=== PATIENT | female | born 1980 | race African-American/Black ===

== ENCOUNTER 2022-06-19 07:03 | Outpatient (CLI) | payer OTHER ==
[2022-06-19 07:31] LABS: BASOPHILS # (AUTO) 0.1 10^3/uL (0.0-0.1); BASOPHILS % (AUTO) 0.9 %; EOSINOPHILS # (AUTO) 0.2 10^3/uL (0.0-0.7); EOSINOPHILS % (AUTO) 3.3 %; HCT - HEMATOCRIT 29.6 % (37.0-47.0); HGB - HEMOGLOBIN 8.1 g/dL (12.0-16.0); LYMPHOCYTES # (AUTO) 1.9 10^3/uL (1.5-3.5); LYMPHOCYTES % (AUTO) 35.4 %; MEAN CORPUSCULAR HGB CONC 27.4 g/dL (32.0-36.0); MEAN CORPUSCULAR VOLUME 72.9 fL (81.0-99.0); MONOCYTES # (AUTO) 0.5 10^3/uL (0.0-1.0); MONOCYTES % (AUTO) 9.2 %; NEUTROPHILS # (AUTO) 2.7 10^3/uL (1.5-6.6); NEUTROPHILS % (AUTO) 50.5 %; PLT - PLATELET COUNT 325 10^3/uL (130-450); RED BLOOD COUNT 4.06 10^6/uL (4.20-5.40); RED CELL DISTRIBUTION WIDTH 19.2 % (12.0-15.0); WHITE BLOOD COUNT 5.4 x10^3/uL (4.8-10.8)
[2022-06-19 07:57] LABS: % IRON SATURATION 4 % (20-50); ALBUMIN 4.5 g/dL (3.2-5.5); ALBUMIN/GLOBULIN RATIO 1.3 (1.0-2.2); ALKALINE PHOSPHATASE 51 IU/L (42-121); ALT ALANINE AMINOTRANSFERASE 18 IU/L (10-60); AST ASPARTATE AMINOTRANSFERASE 21 IU/L (10-42); BILIRUBIN,TOTAL 0.2 mg/dL (0.2-1.0); BUN - BLOOD UREA NITROGEN 10 mg/dL (6-20); CALCIUM 9.6 mg/dL (8.5-10.3); CARBON DIOXIDE - CO2 26 mmol/L (21-32); CHLORIDE 104 mmol/L (101-111); CHOL/HDL RATIO 3.1 (<4.4); CHOLESTEROL 151 mg/dL; GFR - MDRD 74 (>89); GLUCOSE 94 mg/dL (70-100); HDL CHOLESTEROL 48 mg/dL; IRON 19 ug/dL (28-170); LDL CHOLESTEROL,CALCULATED 84 mg/dL; LDL/HDL RATIO 1.8 (<4.4); POTASSIUM 3.8 mmol/L (3.5-5.0); SODIUM 139 mmol/L (135-145); TOTAL IRON BINDING CAPACITY 539 ug/dL (250-450); TOTAL PROTEIN 8.1 g/dL (6.7-8.2); TRANSFERRIN 385 mg/dL (192-382); TRIGLYCERIDES 94 mg/dL; VLDL CHOLESTEROL 19 mg/dL
== END 2022-06-19 07:04 | disposition home or self-care (01) ==
LOC: LAB 07:03
PROVIDERS: ATTEND Nurse Practitioner Adult Health
DX: D64.9 Anemia, unspecified (principal); E66.9 Obesity, unspecified; I95.9 Hypotension, unspecified; R53.83 Other fatigue; E55.9 Vitamin D deficiency, unspecified; Z13.9 Encounter for screening, unspecified
CPT/HCPCS: 36415; 80053; 80061; 82306; 82533; 83540; 83721; 84443; 84466; 85025; 87086

== ENCOUNTER 2022-06-26 13:55 | Outpatient (CLI) | payer OTHER ==
--- NOTE | 2022-06-27 12:53 | Mammography Report ---
BILATERAL DIGITAL SCREENING MAMMOGRAM 3D/2D: 06/26/2022 CLINICAL: Baseline exam. Routine screening. No prior exams were available for comparison. Both breasts are heterogeneously dense, which may obscure small masses (category c / 51-75% glandula r tissue). No significant masses, calcifications, or other findings are seen in either breast. IMPRESSION: NEGATIVE There is no mammographic evidence of malignancy. A 1 year screening mammogram is recommended. Based on the Tyrer Cuzick model (a risk assessment model) the patients lifetime risk is 12.7% and he r 10 year risk is 1.6%. According to the ACR, ACS, and NCCN guidelines, an annual breast MRI exam terry ng with mammogram is recommended if the patients lifetime risk is 20% or greater. This exam was interpreted at Station ID: [id number]. NOTE: For mammograms, a report in lay terms will be sent to the patient. Approximately 15% of breast malignancies will not be visualized mammographically. In the management of a palpable breast mass, a negative mammogram must not discourage biopsy of a clinically suspicious lesion. Electronically Signed By: Brandi blevins/brad:06/26/2022 16:07:52 ACR BI-RADS Category 1: Negative 3341F PARENCHYMAL PATTERN: (D) - The breast(s) demonstrate(s) heterogeneously dense fibroglandular shonda elmore. BI-RADS CATEGORY: (1) - 1 RECOMMENDATION: (ANNUAL) - Recommend routine annual screening mammography. [id number] 1 year screening LATERALITY: (B)
== END 2022-06-26 13:56 | disposition home or self-care (01) ==
LOC: DI 13:55
PROVIDERS: ATTEND Nurse Practitioner Adult Health
DX: Z12.31 Encounter for screening mammogram for malignant neoplasm of breast (principal)

== ENCOUNTER 2022-07-16 13:45 | Outpatient (CLI) | payer OTHER ==
--- NOTE | 2022-07-16 18:41 | Ultrasound Report ---
PROCEDURE: Pelvic w/Transvaginal INDICATIONS: ABN UTERINE BLEEDING TECHNIQUE: Real-time scanning was performed of the pelvic organs, with image documentation. Additional endovagi nal scanning was necessary due to incomplete visualization of the adnexal and endometrial structures by transabdominal scanning. COMPARISON: None. FINDINGS: Uterus: Uterus is anteverted and normal in size at 11.3 x 13.0 x 11.9 cm. The myometrium is homogen eous. The endometrium measures 6.8 mm in combined thickness. At least 3 separate myometrial fibroid s present. There is a anterior midline subserosal fibroid measuring 6.2 x 6.4 x 4.6, a right-sided an terior intramural fibroid measuring 3.3 x 3.9 x 3.0 cm, and a right posterior intramural fibroid cami uring 7.4 x 6.3 x 6.1 cm. Intrauterine device appears low in the lower uterine segment or cervix Ovaries: The right ovary measures 4.0 x 2.4 x 2.6 cm, with a calculated ovarian volume of 13.2 cc. L eft ovary is not visualized. Other: No pathologic free abdominal or pelvic fluid. IMPRESSION: Low positioning of intrauterine device in the lower uterine segment or endocervical canal. Several intrauterine fibroids measuring up to 7.4 cm Reviewed by: Jose Dobbs MD on 07/16/2022 5:40 PM [facility] Approved by: Jose Dobbs MD on 07/16/2022 5:40 PM [facility] Station ID: [id number]
== END 2022-07-16 13:46 | disposition home or self-care (01) ==
LOC: DI 13:45
PROVIDERS: ATTEND Nurse Practitioner
DX: D25.1 Intramural leiomyoma of uterus (principal); D25.2 Subserosal leiomyoma of uterus; T83.32XA Displacement of intrauterine contraceptive device, initial encounter

== ENCOUNTER 2022-08-29 14:36 | Outpatient (CLI) | payer OTHER ==
[2022-08-29 14:51] LABS: HCT - HEMATOCRIT 33.4 % (37.0-47.0); HGB - HEMOGLOBIN 10.4 g/dL (12.0-16.0); MEAN CORPUSCULAR HEMOGLOBIN 26.1 pg (27.0-31.0); MEAN CORPUSCULAR HGB CONC 31.1 g/dL (32.0-36.0); MEAN CORPUSCULAR VOLUME 83.9 fL (81.0-99.0); MEAN PLATELET VOLUME 9.8 fL (7.9-10.8); RED BLOOD COUNT 3.98 10^6/uL (4.20-5.40); RED CELL DISTRIBUTION WIDTH 23.8 % (12.0-15.0); WHITE BLOOD COUNT 5.4 x10^3/uL (4.8-10.8)
[2022-08-29 15:11] LABS: CALCIUM 9.3 mg/dL (8.5-10.3); POTASSIUM 3.8 mmol/L (3.5-5.0)
== END 2022-08-29 14:37 | disposition home or self-care (01) ==
LOC: LAB 14:36
PROVIDERS: ATTEND Nurse Practitioner Adult Health
DX: D64.9 Anemia, unspecified (principal); N92.0 Excessive and frequent menstruation with regular cycle
CPT/HCPCS: 36415; 80048; 83540; 84466; 85027

== ENCOUNTER 2022-09-19 07:10 | Outpatient (CLI) | payer OTHER ==
[2022-09-19] MEDS ORDERED: iohexoL-300 100 ML VIAL ONE (07:13)
[2022-09-19] MEDS ORDERED: DIATRIZOATE MEGLU/DIATRIZO SOD 30 ML BOTTLE PO ONE ×2 (07:13→09:53)
[2022-09-19] MEDS ORDERED: iohexoL-300 100 ML VIAL IVP ONE (09:53)
--- NOTE | 2022-09-19 11:47 | CT Report ---
PROCEDURE: ABDOMEN/PELVIS W INDICATIONS: UTERINE FIBROIDS, ABD BLOATING, ABD PAIN CONTRAST: 100ml Omnipaque 300 TECHNIQUE: After the administration of IV and oral contrast, 5 mm thick sections acquired from the diaphragms to the symphysis. 5 mm thick coronal and sagittal reformats were acquired. For radiation dose reducti on, the following was used: automated exposure control, adjustment of mA and/or kV according to jennifer ent size. COMPARISON: Correlation made to pelvic ultrasound 07/16/2022 FINDINGS: Image quality: Excellent. ABDOMEN: Lung bases: Lung bases are clear. Heart size is normal. Solid organs: Liver and spleen are normal in size and enhancement. Gallbladder appears normal. Joseluis iary system is non dilated. Pancreas enhances normally. No adrenal nodules. Kidneys demonstrate no rmal size and enhancement. Mild right hydronephrosis and hydroureter to the level of the pelvic inlet where the ureter becomes decompressed by enlarged uterus. No ureteral calcifications. Mild left lowe r pole caliectasis. No hydroureter or ureteral calcifications. 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 Peritoneum and bowel: Stomach, small bowel, and colon appear normal. Bowel loops are predominantly di splaced out of the pelvis or due to an enlarged uterus. Nodes and vessels: No retroperitoneal or mesenteric adenopathy by size criteria. Aorta and inferior vena cava are normal in size. Miscellaneous: No ventral hernias. PELVIS: Genitourinary: The uterus is lobulated and diffusely enlarged with the fundus nearly to the level of the umbilicus. The uterus measures 16.1 x 12.2 x 5.1 cm. There are several circumscribed myometrial m asses as well as subserosal central fundal mass. Adjacent ovaries are within normal limits. There is a dominant follicle in the left ovary measuring about 3.1 cm. The urinary bladder is partially decompressed and demonstrates a normal wall thickness. No stones. Miscellaneous: No inguinal hernias or adenopathy. Bones: No suspicious bony lesions. No vertebral body compression fractures. IMPRESSION: 1. Enlarged uterus containing several masses is consistent with uterine fibroids. 2. The enlarged uterus compresses the mid to distal right ureter causing proximal mild hydroureterone phrosis. 3. Enlarged uterus displaces bowel loops out of the pelvis into the abdomen, potentially causing symp toms of bloating. 4. Ovaries appear normal. Reviewed by: Brandi Gregg MD on 09/19/2022 11:45 AM PST Approved by: Brandi Gregg MD on 09/19/2022 11:45 AM PST Station ID: [id number]
== END 2022-09-19 07:11 | disposition home or self-care (01) ==
LOC: DI 07:10
PROVIDERS: ATTEND Nurse Practitioner
DX: Z01.818 Encounter for other preprocedural examination (principal); D25.9 Leiomyoma of uterus, unspecified; R14.0 Abdominal distension (gaseous); R10.9 Unspecified abdominal pain; D50.0 Iron deficiency anemia secondary to blood loss (chronic); N13.39 Other hydronephrosis
CPT/HCPCS: 74177; Q9963; Q9967